=== PATIENT | male | born 1955 | race Caucasian/White ===

== ENCOUNTER 2020-03-17 14:40 | Observation (INO) ==
[2020-03-17 15:28] LABS: Apearance,Urine CLEAR (Clear); Bilirubin,Urine Negative (Negative); Blood, Urine Negative (Negative); Glucose,Urine (UA) Negative (Negative); Hyaline Casts,Urine 5 /LPF (0-3); Ketones,Urine Negative (Negative); Mucus,Urine Occasional /LPF (Occasional); Nitrite,Urine Negative (Negative); Protein,Urine Negative; RBC,Urine 2 /HPF (0-4); Urine Color Yellow (Yellow); Urine Specific Gravity 1.017 (1.001-1.035); Urine Urobilinogen < 2.0 EU/DL (0.2-1.0); WBC,Urine <1 /HPF (0-6)
[2020-03-17 15:32] LABS: Barbiturates Screen,Urine Negative (Negative); Benzodiazepines Screen,Urine Positive (Negative); Cannabinoid Screen,Urine Negative (Negative); Opiate Screen,Urine Negative (Negative); Phencyclidine Screen,Urine Negative (Negative)
[2020-03-17 15:48] LABS: Basophils # 0.1 10*3/uL (0.0-0.2); Basophils % 0.8 % (0.0-0.8); Eosinophils # 0.2 10*3/uL (0.0-0.87); Eosinophils % 2.5 % (0.00-10.9); Hematocrit 34.7 VOL% (42.0-52.0); Hemoglobin 11.9 GM/DL (14.0-18.0); Immature Granulocytes % 0.6 %; Immature Granulocytes Absolute 0.05 #; Lymphocytes % 12.3 % (21.2-54.2); Mean Corpuscular HGB Conc 34.3 GM/DL (32-36); Mean Corpuscular Volume 89.2 FL (87-102); Mean Platelet Volume 9.1 FL (9.6-12.0); Monocytes % 9.1 % (1.7-12.7); Neutrophils % 74.7 % (38.7-73.9); Platelet Count 227 T/CUMM (130-400); Red Blood Count 3.89 MC/CUMM (3.8-5.5); Red Cell Distribution Width 13.3 % (9.3-17.3)
[2020-03-17 16:07] LABS: Alanine Aminotransferase 28 U/L (16-61); Albumin 3.2 G/DL (3.4-5.0); Alkaline Phosphatase 110 U/L (45-117); Aspartate Amino Transferase 32 U/L (0-37); Blood Urea Nitrogen 17 MG/DL (7-18); CKMB % 1.9 %; Calcium 8.7 MG/DL (8.5-10.1); Estimated Glom Filtration Rate 44 ML/MIN; Glucose 109 MG/DL (74-106); Osmolality,Calculated 275.8 MOS/KG (273-304); Total Protein 6.6 G/DL (6.4-8.3); Troponin I < 0.015 NG/ML (0.00-0.045)
[2020-03-17 16:08] LABS: Partial Thromboplastin Time 24.7 SECS (23.9-33.8)
[2020-03-17] MEDS ORDERED: ONDANSETRON 4 MG/2 ML VIAL IV PRN (20:16)
[2020-03-17] MEDS ORDERED: ACETAMINOPHEN 325 MG TABLET PO PRN (20:16)
[2020-03-17] MEDS ORDERED: THIAMINE INJ 100 MG, FOLIC ACID INJ 1 MG, MULTIVITAMIN INJ 10 ML in SODIUM CHLORIDE 0.9... IV ONE (22:00)
[2020-03-18] MEDS: PANTOPRAZOLE 40 MG TABLET PO SCH (09:41)
[2020-03-18] MEDS: GABAPENTIN 300 MG CAPSULE PO SCH ×2 (16:33→21:11)
[2020-03-18] MEDS ORDERED: cloNIDine 0.1 MG/24 HR PATCH TRANSDERM SCH (17:00)
[2020-03-18] MEDS ORDERED: traZODone 50 MG TABLET PO SCH (21:00)
[2020-03-18] MEDS ORDERED: AMITRIPTYLINE 50 MG TABLET PO SCH (21:00)
[2020-03-18] MEDS: METOPROLOL TARTRATE 25 MG TABLET PO SCH (21:12)
[2020-03-18] MEDS: busPIRone 5 MG TABLET PO SCH (21:12)
[2020-03-19] MEDS ORDERED: TAMSULOSIN 0.4 MG CAPSULE PO SCH (09:00)
[2020-03-19] MEDS ORDERED: ATORVASTATIN 40 MG TABLET PO SCH (09:00)
[2020-03-19] MEDS ORDERED: amLODIPine 10 MG TABLET PO SCH (09:00)
[2020-03-19] MEDS ORDERED: CLOPIDOGREL 75 MG TABLET PO SCH (09:00)
[2020-03-19] MEDS ORDERED: FLUoxetine 20 MG CAPSULE PO SCH (09:00)
[2020-03-19] MEDS: GABAPENTIN 300 MG CAPSULE PO SCH ×2 (09:18→13:41)
[2020-03-19] MEDS: PANTOPRAZOLE 40 MG TABLET PO SCH (09:18)
[2020-03-19] MEDS: busPIRone 5 MG TABLET PO SCH ×2 (09:18→15:53)
[2020-03-19] MEDS: METOPROLOL TARTRATE 25 MG TABLET PO SCH (09:18)
[2020-03-19 16:08] VITALS: BP 154/70
== END 2020-03-19 16:20 | disposition home or self-care (01) ==
LOC: N.EDINP 14:40 → N.ED 14:40 → N.3E 18:18
PROVIDERS: ADMIT Student in an Organized Health Care Education/Training Program; ATTEND Student in an Organized Health Care Education/Training Program